=== PATIENT | male | born 1950 | race American Indian/Alaskan Native ===

== ENCOUNTER 2017-01-06 15:27 | Emergency (ER) | payer MEDICARE ==
[2017-01-06 15:38] VITALS: BP 153/89
--- NOTE | 2017-01-08 20:35 | ED Elopement Review ---
ED Pt Elopement review - Call Back decision Pt Call Back Decision: No action required
== END 2017-01-06 20:30 | disposition left against medical advice (07) ==
LOC: ED 15:27
DX: R11.0 Nausea (principal); R42 Dizziness and giddiness; M54.2 Cervicalgia; M25.519 Pain in unspecified shoulder; I50.9 Heart failure, unspecified; J44.9 Chronic obstructive pulmonary disease, unspecified; I63.9 Cerebral infarction, unspecified; E11.9 Type 2 diabetes mellitus without complications; I25.2 Old myocardial infarction; I10 Essential (primary) hypertension; Z91.018 Allergy to other foods; Z88.5 Allergy status to narcotic agent; Z53.21 Procedure and treatment not carried out due to patient leaving prior to being seen by health care provider

== ENCOUNTER 2019-03-27 13:06 | Emergency (ER) | payer MEDICARE ==
--- NOTE | 2019-03-27 13:26 | Emergency Department Report ---
Chief Complaint: Weakness Stated Complaint: SENT BY DOCTOR / ANEMIA/WEAKNESS Time Seen by Provider: 03/27/19 13:22 - HPI History of Present Illness: pt was admitted last wednesday at [facility] for GI bleed saw GI doctor, had an EGD, pt had PAVM has an appt on April 04 with GI had PNA, completed abx pt has generalized weakness, SOB, fatigue denies any rectal bleed or melena currently saw PCP today and hgb was 7.9 MSE screening note: Focused history performed Due to findings the following was ordered: GI bleed protocol
[2019-03-27 14:22] LABS: Basophils # (Auto) 0.1 K/mm3 (0.0-0.1); Eosinophils # (Auto) 0.1 K/mm3 (0.0-0.4); Eosinophils % (Auto) 1.9 % (0.0-4.3); Hematocrit 27.8 % (35.5-45.6); Hemoglobin 8.7 gm/dl (11.8-15.2); Lymphocytes # (Auto) 0.7 K/mm3 (1.2-5.4); Lymphocytes % (Auto) 11.9 % (13.4-35.0); Mean Corpuscular HGB Conc 31 % (32-34); Mean Corpuscular Volume 84 fl (84-94); Monocytes # (Auto) 0.8 K/mm3 (0.0-0.8); Monocytes % (Auto) 13.3 % (0.0-7.3); Platelet Count 326 K/mm3 (140-440); Red Cell Distribution Width 18.1 % (13.2-15.2)
[2019-03-27 14:39] LABS: Calcium 8.6 mg/dL (8.4-10.2)
[2019-03-27 14:40] LABS: INR 1.2 (0.87-1.13)
[2019-03-27 14:41] LABS: Partial Thromboplastin Time 32.8 Sec. (24.2-36.6)
--- NOTE | 2019-03-27 14:56 | XRay Report ---
ROUTINE CHEST, TWO VIEWS: HISTORY: GI bleed. Previous CABG changes and 2-lead pacemaker placement are noted. Mild cardiomegaly and small left pleural effusion are identified. There is compressive atelectasis at the left lung base, otherwise, the lungs are clear. Normal bony structures. IMPRESSION: Mild cardiomegaly and small left pleural effusion.
[2019-03-27 15:18] VITALS: BP 131/67
--- NOTE | 2019-03-27 16:42 | Emergency Department Report ---
ED General Adult HPI - General Chief complaint: Weakness Stated complaint: SENT BY DOCTOR / ANEMIA/WEAKNESS Time Seen by Provider: 03/27/19 13:22 Source: patient Mode of arrival: Wheelchair Limitations: No Limitations - History of Present Illness Initial comments: Patient presents to the emergency department for abnormal laboratory finding. 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 The report shows that the patient's hemoglobin on Wednesday was a 7.9. Although the patient had a recent admission for a GI bleed at [facility] today he has no complaint of rectal bleeding -: Sudden Severity scale (0 -10): 0 Improves with: none Worsens with: none Associated Symptoms: denies other symptoms Treatments Prior to Arrival: none - Related Data Home Medications Medication Instructions Recorded Confirmed Last Taken Nitroglycerin [Nitrostat] 1 tab SL Q5M PRN 06/21/14 09/12/16 09/11/16 Tums 200 mg PO DAILY 04/18/15 05/12/16 04/18/15 Ipratropium/Albuterol Sulfate 3 ml INHALATION Q8AM PRN 05/13/16 09/12/16 09/11/16 [DUONEB *Not for PRN Use*] Previous Rx's Medication Instructions Recorded Last Taken Type Amitiza 24 mcg PO BID #60 04/20/15 09/11/16 Rx Clopidogrel [Plavix] 75 mg PO QDAY #30 tablet 04/20/15 09/11/16 Rx Insulin NPH/Regular [NovoLIN 70/30] 20 units SQ BID #100 units 04/20/15 09/11/16 Rx Lisinopril [Zestril TAB] 20 mg PO DAILY #30 tablet 04/20/15 09/11/16 Rx Pantoprazole [Protonix TAB] 40 mg PO DAILY #30 tablet 04/20/15 09/11/16 Rx Simvastatin (Nf) [Zocor TAB] 20 mg PO HS #30 tablet 04/20/15 09/11/16 Rx amLODIPine [Norvasc] 5 mg PO QDAY #30 tablet 04/20/15 09/11/16 Rx levETIRAcetam [Keppra TAB] 500 mg PO BID #60 tablet 04/20/15 Unknown Rx Colchicine [Colcrys] 0.6 mg PO BID #10 tablet 09/13/16 Unknown Rx HYDROcodone/APAP 5-325 [[place] 1 each PO Q6H PRN #10 tablet 09/13/16 Unknown Rx 5-325 mg TAB] Metoprolol Xl [Metoprolol 12.5 mg PO QDAY #30 tablet 09/13/16 Unknown Rx SUCCINATE ER TAB] Prednisone [predniSONE (Ashley) ER 5 mg PO QDAY #5 tablet. 09/13/16 Unknown Rx TAB] Allergies Allergy/AdvReac Type Severity Reaction Status Date / Time codeine Allergy Swelling Verified 03/27/19 13:08 morphine Allergy Unknown Verified 03/27/19 13:08 ED Review of Systems ROS: Stated complaint: SENT BY DOCTOR / ANEMIA/WEAKNESS Other details as noted in HPI Comment: All other systems reviewed and negative Constitutional: denies: chills, fever Eyes: denies: eye pain, eye discharge, vision change ENT: denies: ear pain, throat pain Respiratory: denies: cough, shortness of breath, wheezing Cardiovascular: denies: chest pain, palpitations Endocrine: no symptoms reported Gastrointestinal: denies: abdominal pain, nausea, diarrhea Genitourinary: denies: urgency, dysuria Musculoskeletal: denies: back pain, joint swelling, arthralgia Skin: denies: rash, lesions Neurological: denies: headache, weakness, paresthesias Psychiatric: denies: anxiety, depression Hematological/Lymphatic: denies: easy bleeding, easy bruising ED Past Medical Hx - Past Medical History Hx Hypertension: Yes Hx CVA: Yes (03/2015) Hx Heart Attack/AMI: Yes Hx Congestive Heart Failure: Yes Hx Diabetes: Yes Hx Renal Disease: Yes (CKD) Hx Sickle Cell Disease: No Hx Asthma: No Hx COPD: Yes Hx Tuberculosis: No Hx HIV: No Additional medical history: sleep apnea, chronic bronchitis, DDD, A-Fib,PAVM, pneumonia, Iron Deficiency Anemia - Surgical History Hx Open Heart Surgery: Yes Hx Pacemaker: Yes (05/14/16) Hx Cholecystectomy: No Additional Surgical History: 5 bypasses, Cspine sx - Social History Smoking Status: Never Smoker Substance Use Type: None - Medications Home Medications: Home Medications Medication Instructions Recorded Confirmed Last Taken Type Nitroglycerin [Nitrostat] 1 tab SL Q5M PRN 06/21/14 09/12/16 09/11/16 History Tums 200 mg PO DAILY 04/18/15 05/12/16 04/18/15 History Amitiza 24 mcg PO BID #60 04/20/15 09/12/16 09/11/16 Rx Clopidogrel [Plavix] 75 mg PO QDAY #30 tablet 04/20/15 09/12/16 09/11/16 Rx Insulin NPH/Regular [NovoLIN 70/30] 20 units SQ BID #100 units 04/20/15 09/12/16 09/11/16 Rx Lisinopril [Zestril TAB] 20 mg PO DAILY #30 tablet 04/20/15 09/12/16 09/11/16 Rx Pantoprazole [Protonix TAB] 40 mg PO DAILY #30 tablet 04/20/15 09/12/16 09/11/16 Rx Simvastatin (Nf) [Zocor TAB] 20 mg PO HS #30 tablet 04/20/15 09/12/16 09/11/16 Rx amLODIPine [Norvasc] 5 mg PO QDAY #30 tablet 04/20/15 09/12/16 09/11/16 Rx levETIRAcetam [Keppra TAB] 500 mg PO BID #60 tablet 04/20/15 05/12/16 Unknown Rx Ipratropium/Albuterol Sulfate 3 ml INHALATION Q8AM PRN 05/13/16 09/12/16 09/11/16 History [DUONEB *Not for PRN Use*] Colchicine [Colcrys] 0.6 mg PO BID #10 tablet 09/13/16 Unknown Rx HYDROcodone/APAP 5-325 [[place] 1 each PO Q6H PRN #10 tablet 09/13/16 Unknown Rx 5-325 mg TAB] Metoprolol Xl [Metoprolol 12.5 mg PO QDAY #30 tablet 09/13/16 Unknown Rx SUCCINATE ER TAB] Prednisone [predniSONE (Ashley) ER 5 mg PO QDAY #5 tablet.dr 09/13/16 Unknown Rx TAB] ED Physical Exam - General Limitations: No Limitations General appearance: alert, in no apparent distress - Head Head exam: Present: atraumatic, normocephalic - Eye Eye exam: Present: normal appearance, PERRL, EOMI - ENT ENT exam: Present: mucous membranes moist - Neck Neck exam: Present: normal inspection - Respiratory Respiratory exam: Present: normal lung sounds bilaterally. Absent: respiratory distress - Cardiovascular Cardiovascular Exam: Present: regular rate, normal rhythm. Absent: systolic murmur, diastolic murmur, rubs, gallop - GI/Abdominal GI/Abdominal exam: Present: soft, normal bowel sounds. Absent: distended, tenderness - Rectal Rectal exam: Present: deferred - Extremities Exam Extremities exam: Present: normal inspection - Back Exam Back exam: Present: normal inspection - Neurological Exam Neurological exam: Present: alert, oriented X3, CN II-XII intact. Absent: motor sensory deficit - Psychiatric Psychiatric exam: Present: normal affect, normal mood - Skin Skin exam: Present: warm, dry, intact, normal color. Absent: rash ED Course Vital Signs 03/27/19 03/27/19 13:22 15:04 Temperature 98.1 F Pulse Rate 70 74 Respiratory 18 16 Rate Blood Pressure 120/76 Blood Pressure 131/67 [Left] O2 Sat by Pulse 98 96 Oximetry ED Medical Decision Making - Lab Data Result diagrams: 03/27/19 13:54 03/27/19 13:54 Lab Results 03/27/19 03/27/19 03/27/19 Range/Units 13:54 13:54 13:54 WBC 6.0 (4.5-11.0) K/mm3 RBC 3.30 L (3.65-5.03) M/mm3 Hgb 8.7 L (11.8-15.2) gm/dl Hct 27.8 L (35.5-45.6) % MCV 84 (84-94) fl MCH 26 L (28-32) pg MCHC 31 L (32-34) % RDW 18.1 H (13.2-15.2) % Plt Count 326 (140-440) K/mm3 Lymph % (Auto) 11.9 L (13.4-35.0) % [place] % (Auto) 13.3 H (0.0-7.3) % Eos % (Auto) 1.9 (0.0-4.3) % Baso % (Auto) 1.0 (0.0-1.8) % Lymph # 0.7 L (1.2-5.4) K/mm3 [place] # 0.8 (0.0-0.8) K/mm3 Eos # 0.1 (0.0-0.4) K/mm3 Baso # 0.1 (0.0-0.1) K/mm3 Seg Neutrophils % 71.9 H (40.0-70.0) % Seg Neutrophils # 4.3 (1.8-7.7) K/mm3 PT 16.0 H (12.2-14.9) Sec. INR 1.20 H (0.87-1.13) APTT 32.8 (24.2-36.6) Sec. Sodium 136 L (137-145) mmol/L Potassium 4.3 (3.6-5.0) mmol/L Chloride 97.7 L (98-107) mmol/L Carbon Dioxide 27 (22-30) mmol/L Anion Gap 16 mmol/L BUN 69 H (9-20) mg/dL Creatinine 2.4 H (0.8-1.5) mg/dL Estimated GFR 33 ml/min BUN/Creatinine Ratio 29 % Glucose 182 H (75-100) mg/dL Calcium 8.6 (8.4-10.2) mg/dL Magnesium 2.00 (1.7-2.3) mg/dL Total Bilirubin 0.60 (0.1-1.2) mg/dL AST 26 (5-40) units/L ALT 16 (7-56) units/L Alkaline Phosphatase 245 H (35-129) units/L Total Protein 6.4 (6.3-8.2) g/dL Albumin 3.0 L (3.9-5) g/dL Albumin/Globulin Ratio 0.9 % Blood Type Antibody Screen 03/27/19 Range/Units 13:54 WBC (4.5-11.0) K/mm3 RBC (3.65-5.03) M/mm3 Hgb (11.8-15.2) gm/dl Hct (35.5-45.6) % MCV (84-94) fl MCH (28-32) pg MCHC (32-34) % RDW (13.2-15.2) % Plt Count (140-440) K/mm3 Lymph % (Auto) (13.4-35.0) % [place] % (Auto) (0.0-7.3) % Eos % (Auto) (0.0-4.3) % Baso % (Auto) (0.0-1.8) % Lymph # (1.2-5.4) K/mm3 [place] # (0.0-0.8) K/mm3 Eos # (0.0-0.4) K/mm3 Baso # (0.0-0.1) K/mm3 Seg Neutrophils % (40.0-70.0) % Seg Neutrophils # (1.8-7.7) K/mm3 PT (12.2-14.9) Sec. INR (0.87-1.13) APTT (24.2-36.6) Sec. Sodium (137-145) mmol/L Potassium (3.6-5.0) mmol/L Chloride (98-107) mmol/L Carbon Dioxide (22-30) mmol/L Anion Gap mmol/L BUN (9-20) mg/dL Creatinine (0.8-1.5) mg/dL Estimated GFR ml/min BUN/Creatinine Ratio % Glucose (75-100) mg/dL Calcium (8.4-10.2) mg/dL Magnesium (1.7-2.3) mg/dL Total Bilirubin (0.1-1.2) mg/dL AST (5-40) units/L ALT (7-56) units/L Alkaline Phosphatase (35-129) units/L Total Protein (6.3-8.2) g/dL Albumin (3.9-5) g/dL Albumin/Globulin Ratio % Blood Type O POSITIVE Antibody Screen Negative - EKG Data -: EKG Interpreted by Pr EKG shows normal: sinus rhythm Rate: normal (Paced Rhythm) - Radiology Data Radiology results: report reviewed - Medical Decision Making Discussed patient's hemoglobin findings of 8.7 Critical care attestation.: If time is entered above; I have spent that time in minutes in the direct care of this critically ill patient, excluding procedure time. ED Disposition Clinical Impression: Abnormal laboratory test, Anemia Disposition: DC-01 TO HOME OR SELFCARE Is pt being admited?: No Does the pt Need Aspirin: No Condition: Stable Instructions: Anemia (ED) Additional Instructions: return if worse Referrals: TANNER CASEY MD [Primary Care Provider] - 3-5 Days Time of Disposition: 16:48
== END 2019-03-27 17:08 | disposition home or self-care (01) ==
LOC: ED 13:06
DX: D64.9 Anemia, unspecified (principal); R79.9 Abnormal finding of blood chemistry, unspecified; I13.0 Hypertensive heart and chronic kidney disease with heart failure and stage 1 through stage 4 chronic kidney disease, or unspecified chronic kidney disease; I50.9 Heart failure, unspecified; E11.22 Type 2 diabetes mellitus with diabetic chronic kidney disease; N18.9 Chronic kidney disease, unspecified; J44.9 Chronic obstructive pulmonary disease, unspecified; G47.30 Sleep apnea, unspecified; I48.91 Unspecified atrial fibrillation; Z87.01 Personal history of pneumonia (recurrent); Z88.5 Allergy status to narcotic agent; Z79.4 Long term (current) use of insulin; Z95.0 Presence of cardiac pacemaker
CPT/HCPCS: 36415; 71046; 80053; 83735; 85025; 85610; 85730; 86850; 86900; 86901; 93005; 93010; 99283